=== PATIENT | male | born 1950 | race Caucasian/White ===

== ENCOUNTER → 2017-04-12 11:01 | Outpatient (CLI) | payer OTHER ==
[2014-08-25 15:27] VITALS: BMI 27.9
[~2017-04-12 11:01] MED LIST: ACETAMINOPHEN325 MG PO; BAYER CHEWABLE81 MG PO; CLARITIN 10 MG10 MG PO; GLUCOPHAGE500 MG PO; GLUCOTROL 5 MG T5 MG PO; HUMULIN R100 U/ML; IBUPROFEN600 MG PO; K-DUR20 MEQ; LASIX40 MG PO; LEVAQUIN500 MG PO; METOPROLOL TART50 MG PO; NEURONTIN 300300 MG PO; NOVOLIN 70/30 110 ML SC; PLAVIX75 MG PO; PRAVACHOL40 MG PO; PRILOSEC20 MG PO; PRINIVIL20 MG PO; TIAZAC/CARDIZE120 MG PO; TUMS500 MG PO; ULTRAM50 MG PO
== END | disposition home or self-care (01) ==
LOC: D.US 11:00
DX: I83.012 Varicose veins of right lower extremity with ulcer of calf (principal); E11.9 Type 2 diabetes mellitus without complications; I25.10 Atherosclerotic heart disease of native coronary artery without angina pectoris; I10 Essential (primary) hypertension; E78.5 Hyperlipidemia, unspecified; I50.30 Unspecified diastolic (congestive) heart failure

== ENCOUNTER 2017-06-13 05:09 | Day surgery (SDC) | payer OTHER ==
[~2017-06-13] VITALS: Ht 175.3 cm; Wt 108.9 kg
--- NOTE | ~2017-06-13 | HP ---
PATIENT: CHANEL LOVELL MEDICAL RECORD: [id number] ACCOUNT: [id number] LOCATION:IRMA : 52 ADMISSION DATE: 06/13/17 HISTORY AND PHYSICAL EXAMINATION CHIEF COMPLAINT: Ulcer. HISTORY OF PRESENT ILLNESS: The patient has a persistent ulcer involving the right lower extremity. He has undergone a forefoot amputation in the past by Dr. Keller. The patient has venous insufficiency changes bilaterally. They are classified as CEAP-5 on the left and CEAP-6 on the right. He has persistent erythema on both sites. He has pitting edema involving the right lower extremity. He has ultrasound evidence of greater saphenous venous reflux on the right, but no lesser saphenous venous reflux. I am planning on a right lower extremity VNUS radiofrequency ablation of the greater saphenous vein as well as therapeutic sclerotherapy. The risks, possible complications, and alternatives to procedure were explained to the patient. He elects to proceed. The discussion specifically included, but was not limited to, bleeding requiring emergency reoperation, treatment failure, and the need for additional procedures such as additional therapeutic sclerotherapy in the future. ALLERGIES: PENICILLIN. HOME MEDICATIONS: Aspirin, Plavix, diltiazem, Pravachol, Lasix, Neurontin, glipizide, insulin, Claritin, metoprolol, and Prilosec. SOCIAL HISTORY: Nonsmoker. PAST MEDICAL AND SURGICAL HISTORY: Recent upper respiratory infection, history of right lower extremity partial foot amputation, coronary artery disease, hypertension, congestive heart failure, history of coronary stents times 3, peripheral vascular disease, 2 CVAs, insulin-dependent diabetes mellitus, hiatal hernia, gastroesophageal reflux. PHYSICAL EXAMINATION: GENERAL: The patient appears acutely ill. Also appears chronically ill. VITAL SIGNS: Reviewed. EARS: External ears appear normal. EYES: Extraocular movements are intact. NECK: Trachea is midline. CHEST: No intercostal retractions. PULMONARY: Nonlabored, no stridor. ABDOMEN: As described above. IMPRESSION: 1. 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 2. Venous insufficiency of the left lower extremity, which is asymptomatic. PLAN: As described above. TRANSINT:[id number] Voice Confirmation ID: [id number] DOCUMENT ID: [id number] HISTORY AND PHYSICAL [id number] CHANEL LOVELL ROBERT MD at 0938 CC: CAMERON BREWER MD, RUDDER MD, ZAY PONCE JEFFREY MD, [id number] MD and ABA ROUSSEAU DICTATION DATE: 06/13/17 1001 BARREL HEADER: 06/13/17 1048 DEP SDC 06/13/17 [place] [id number] [place] [id number]
--- NOTE | ~2017-06-13 | OP ---
PATIENT NAME: CHANEL LOVELL MEDICAL RECORD: [id number] :52 LOCATION:D.OPS ADMISSION DATE: SURGEON: CAMERON HEADLEY MD DATE OF OPERATION: 06/13/2017 PREOPERATIVE DIAGNOSES: 1. Right lower extremity venous insufficiency, CEAP-6. 2. Pathologic greater saphenous venous reflux on the right. POSTOPERATIVE DIAGNOSES: 1. Right lower extremity venous insufficiency, CEAP-6. 2. Pathologic greater saphenous venous reflux on the right. PROCEDURE: 1. VNUS radiofrequency ablation of the right greater saphenous vein. 2. The length of the greater saphenous vein treated was 65.5cm. 3. Therapeutic sclerotherapy. SURGEON: Cameron Headley MD STAMP MOUNTER: None. BLOOD LOSS: Minimal. ANESTHESIA: General. COMPLICATIONS: None. DESCRIPTION OF PROCEDURE: Procedure was performed under ultrasound guidance. Static ultrasonographic images were obtained and are placed in the patient's chart. The patient was conveyed to the operating room electively on 06/13/2017. General anesthesia was induced by the anesthesia staff. The patient was placed in the reverse Trendelenburg position. Utilizing real time ultrasound, I identified a right greater saphenous vein in a transverse orientation. In an axial orientation, I accessed the right greater saphenous vein in an antegrade fashion. A guidewire passed easily. A 7-Bahamian dilator sheath was advanced. The dilator and wire were removed. Through the sheath, the radiofrequency catheter was advanced. I then positioned the patient in the Trendelenburg position. The radiofrequency catheter was advanced to the saphenofemoral junction. It was then pulled back 2 cm into the greater saphenous vein. Utilizing a tumescent crystalloid solution, I injected this solution into the perivenular tissues to act as a heat sink to prevent injury of nearby structures such as nerves. This was performed under ultrasonographic guidance. I then activated radiofrequency catheter twice. With each centimeter pullback, I activated the radiofrequency catheter again. The entire length of the vein treated is listed above. Before removing the sheath, I injected a foam sclerosant, which was Asclera as a therapeutic sclerotherapy maneuver. Endovascular hardware was removed. The puncture site was closed with a horizontal mattress 4-0 Vicryl Rapide suture. A sterile dressing was applied and this was beveled proximally and distally in order to prevent an ischemic stricture. The patient was then extubated and conveyed to post-anesthesia care unit where OPERATIVE REPORT [id number] CHANEL LOVELL he was in stable condition. He will be dismissed back to the senior living with [facility] for pain. I had asked that the senior living remove his dressings in 3 days. I would like for them to order medicated Unna boots, which I will apply out at the senior living. I will be seeing the patient on rounds out at the senior living during endoscopy clinic days. TRANSINT:[id number] Voice Confirmation ID: [id number] DOCUMENT ID: [id number] CAMERON HEADLEY MD at 0938 CC: CAMERON BREWER MD, SAUL COLLAZO MD, JESSICA PERRY MD and [id number] DICTATION DATE: 06/13/171108 EPIC AMBULATORY ANALYSTS: 06/13/17 1215 [facility] 06/13/17 [place] [id number] [place] [address]
[~2017-06-13 05:09] MED LIST changes: -CLARITIN 10 MG10 MG PO; -NOVOLIN 70/30 110 ML SC
[2017-06-13 06:24] LABS: HEMATOCRIT 36.5 % (42.0-54.0); HEMOGLOBIN 12.7 g/dL (13.5-17.5); MCH 27.5 pg (26.0-34.0); MCHC 34.8 g/dL (31.0-37.0); MCV 79.2 fL (80.0-100.0); MEAN PLATELET VOLUME 9.6 fL (7.4-10.4); RBC 4.61 10x6/uL (4.20-6.10); RDW 13.9 % (11.5-14.5); WBC 4.1 10x3/uL (4.8-10.8)
[2017-06-13] MEDS ORDERED: NOVOLIN 70/30 110 ML SC (06:37)
[2017-06-13 06:41] LABS: ANION GAP 8.8 mmol/L (8-16); CALCIUM 8.8 mg/dL (8.5-10.1); CARBON DIOXIDE 27.2 mmol/L (21.0-32.0); CREATININE - SERUM 1.1 mg/dL (0.6-1.3)
[2017-06-13] MEDS ORDERED: CLARITIN 10 MG10 MG PO (06:42)
[2017-06-13 06:48] VITALS: BP 145/72; Ht 175.3 cm; Wt 108.9 kg
== END 2017-06-13 12:45 | disposition home or self-care (01) ==
LOC: D.OPS 05:09
PROVIDERS: Anesthesiology
DX: I87.2 Venous insufficiency (chronic) (peripheral) (principal); I25.10 Atherosclerotic heart disease of native coronary artery without angina pectoris; Z95.5 Presence of coronary angioplasty implant and graft; I11.0 Hypertensive heart disease with heart failure; I50.9 Heart failure, unspecified; I73.9 Peripheral vascular disease, unspecified; Z86.73 Personal history of transient ischemic attack (TIA), and cerebral infarction without residual deficits; E11.9 Type 2 diabetes mellitus without complications; K21.9 Gastro-esophageal reflux disease without esophagitis; Z89.439 Acquired absence of unspecified foot; Z88.0 Allergy status to penicillin; Z79.82 Long term (current) use of aspirin; Z79.02 Long term (current) use of antithrombotics/antiplatelets; Z79.84 Long term (current) use of oral hypoglycemic drugs; Z79.4 Long term (current) use of insulin; Z79.899 Other long term (current) drug therapy